=== PATIENT | female | born 1950 | race Caucasian/White ===

== ENCOUNTER 2017-10-12 09:58 | Outpatient (CLI) | payer OTHER | END 2017-10-12 10:13 | disposition home or self-care (01) | LOC: SONOGRAMA 09:58 | DX: N60.11 Diffuse cystic mastopathy of right breast (principal); N60.12 Diffuse cystic mastopathy of left breast; N63.41 Unspecified lump in right breast, subareolar ==

== ENCOUNTER 2018-02-12 06:38 | Day surgery (SDC) | payer OTHER ==
[~2018-02-12 06:38] MED LIST: ADULT ASPIRIN81 MG PO; DAILY AMINO1 EACH; GLIPIZIDE XL2.5 MG PO; JANUVIA100 MG PO; LATANOPROST2.5 ML OP; LIPITOR20 MG PO; LOSARTAN-HCTZ1 EAC2 PO; METOPROLOL PO; MULTIVIT PO; NORVASC2.5 M1; SYNTHROID75 MCG PO
== END 2018-02-12 18:40 | disposition home or self-care (01) ==
LOC: CIR.AMB 06:38
DX: D24.1 Benign neoplasm of right breast (principal)